=== PATIENT | female | born 2000 | race Asian ===

== ENCOUNTER 2021-02-14 18:39 | Emergency (ER) | payer BC ==
[~2021-02-14] VITALS: Ht 157.5 cm; Wt 59.1 kg
[2021-02-14 19:11] VITALS: BP 118/64; PULSE 80; TEMP 98.6
== END 2021-02-14 19:13 | disposition home or self-care (01) ==
LOC: COL.ER 18:39
DX: S91.331A Puncture wound without foreign body, right foot, initial encounter (principal); W45.0XXA Nail entering through skin, initial encounter